=== PATIENT | female | born 1965 | race Caucasian/White ===

== ENCOUNTER 2025-06-30 13:27 | Emergency (ER) | payer OTHER ==
[~2025-06-30] VITALS: Ht 162.6 cm; Wt 61.0 kg
[2025-06-30 13:32] VITALS: TEMP 37.1; O2SAT 98
[2025-06-30 15:21] VITALS: BP 136/89; PULSE 91; RESP 18
[2025-06-30] MEDS: IBUPROFEN 600MG TABLET PO ONE (15:21)
[2025-06-30] MEDS ORDERED: IBUP-1455 MT (15:25)
== END 2025-06-30 15:56 | disposition home or self-care (01) ==
LOC: ER 13:27
DX: M26.609 Unspecified temporomandibular joint disorder, unspecified side (principal); E11.9 Type 2 diabetes mellitus without complications; I10 Essential (primary) hypertension; D64.9 Anemia, unspecified; Z98.890 Other specified postprocedural states
CPT/HCPCS: 99283